=== PATIENT | female | born 1975 | race Caucasian/White ===

== ENCOUNTER 2016-12-23 14:46 | Emergency (ER) | payer SELFPAY ==
--- NOTE | ~2016-12-23 | ER ---
PATIENT'S NAME: [facility] AGE: 41 Y [address] ROOM: [place] [address] LOCATION: ED ADMIT DATE: 12/23/2016 ER/Outpatient Report DISCHARGE DATE: 12/23/2016 FAMILY PHYSICIAN: PHYSICIAN, NO ATTENDING PHYSICIAN: Sriram Camarena Admission date and time documented on the medical record. I saw the patient at 1500 hours. CHIEF COMPLAINT: Nasal congestion, drainage, cough, hot and cold flashes. HISTORY OF PRESENT ILLNESS: The patient is a 41-year-old female who has been ill for 3 days with nasal congestion, posterior nasal drainage, cough. Cough is dry. No fever. Having hot and cold flashes, however, with chills. No sweats. No chest pain or shortness of breath. No abdominal pain, nausea, vomiting, diarrhea, or urinary complaints. HOME MEDICATIONS: See attached medication list. ALLERGIES: NONE. SOCIAL HISTORY: Nonsmoker, nondrinker. SIGNIFICANT PAST MEDICAL HISTORY: Ilz-[id number] diabetes mellitus type 2. OPERATIONS: None. REVIEW OF SYSTEMS: All systems reviewed by me are negative with the exception of those discussed in the history of present illness. PHYSICAL EXAMINATION: VITAL SIGNS: Temperature 98.1 tympanic, pulse 96, respirations 20, blood pressure 134/78, and O2 saturation on room air is 95%. HEENT: Head, normocephalic. Eyes, clear. Ears, clear TMs bilaterally. Nose, congested. Throat, clear. Posterior drainage noted. Mucous membranes moist. NECK: No nuchal rigidity. No thyromegaly or cervical adenopathy. Full range PATIENT'S NAME: [facility] AGE: 41 Y [address] ROOM: [place] [address] LOCATION: ED ADMIT DATE: 12/23/2016 ER/Outpatient Report DISCHARGE DATE: 12/23/2016 FAMILY PHYSICIAN: PHYSICIAN, NO ATTENDING PHYSICIAN: Sriram Camarena of motion. No tenderness. SPINE: Negative. LUNGS: Clear. Good air flow. No rales, rhonchi, or wheezes. HEART: Regular. Pulses are palpable. ABDOMEN: Soft, nontender. Good bowel tones. EXTREMITIES: Intact. NEUROVASCULAR: Intact. SKIN: Clear. IMPRESSION: Upper respiratory tract infection/sinusitis. PLAN: The patient dismissed home. Observation. Activity as tolerated. Fluids diet as tolerated. Warm to hot packs to sinuses intermittently as needed. Z-Fox, take as directed. Mucinex D 600 mg 2 orally b.i.d. #40. Follow up with personal physician as needed. Discussion ensued with the patient concerning my findings and recommendations, she understands. MD SHAYLA BAPTISTE/modl /[id number] d: 12/23/162028 t: 12/24/16607, OUTPATIENT REPORT
== END 2016-12-23 15:14 | disposition disaster alternative care site (69) ==
LOC: GMED 14:46
DX: J06.9 Acute upper respiratory infection, unspecified (principal); J32.9 Chronic sinusitis, unspecified; E11.9 Type 2 diabetes mellitus without complications; Z79.84 Long term (current) use of oral hypoglycemic drugs